=== PATIENT | female | born 1995 | race Two or more races ===

== ENCOUNTER 2016-04-28 16:20 | Emergency (ER) | payer MEDICAID ==
[~2016-04-28 16:20] MED LIST: ALLERGY MEDS PO; AUGMENTIN 875-11 TAB PO; CLONAZEPAM0.25 MG PO; DIFLUCAN100 M1 PO; FLAGYL500 M1 PO; GLUCOPHAGE1000 M1 PO; IBUPROFEN800 MG PO; LISINOPRIL20 MG PO; NORCO 5/325 TAB1 TAB PO; OMEPRAZOLE20 M4 PO; PERCOCET 5/3251 TAB PO; PRENATAL1 EACH PO; PROBIOTIC1 EAC8 PO; PROTONIX40 M2 PO; XANAX1 M1 PO; ZANTAC 7575 M1 PO; ZITHROMAX250 M1 PO; ZOFRAN4 M2 PO; ZOLOFT100 M1 PO
[2016-04-28] MEDS ORDERED: PROGESTERONE100 M1 PO (17:21)
[2016-04-28 18:36] LABS: ANION GAP 12 mmol/L (0-20); BLOOD UREA NITROGEN 10 mg/dl (6-24); CALCIUM 8.9 mg/dl (8.5-10.5); CARBON DIOXIDE-VENOUS 23 mmol/L (22-32); CHLORIDE 110 mmol/l (96-110); CREATININE 0.85 mg/dl (0.50-1.10); GLUCOSE 104 mg/dL (70-110); POTASSIUM 3.8 mmol/L (3.7-5.1); SODIUM 141 mmol/L (135-145); eGFR VALUE FOR BLACK >90 mL/Min
[2016-04-28 19:02] LABS: BASO % 0.2 % (0-2); EOS % 0.6 % (0-7); EOSINOPHIL ABSOLUTE COUNT 0.1 tho/cmm (0.0-0.7); HCT-HEMATOCRIT 35.6 % (34.0-49.0); HGB-HEMOGLOBIN 11.6 gm/dl (12.0-15.5); LYMPH ABSOLUTE COUNT 3.3 tho/cmm (0.8-4.5); MCH (MEAN CORPUSCULAR HGB) 28.6 pg (28.0-32.0); MCHC MEAN CORPUSCULAR HGB CONC 32.6 % (32.0-36.0); MCV (MEAN CELL VOLUME) 87.7 fl (82.0-96.0); MEAN PLATELET VOLUME 10.6 cmc (9.4-12.4); MONO % 6.7 % (0-12); MONOCYTE ABSOLUTE COUNT 0.9 tho/cmm (0.0-1.2); NEUTROPHIL ABSOLUTE COUNT 8.4 tho/cmm (1.6-8.0); NEUTROPHIL-AUTOMATED 8.4 tho/cmm (1.6-8.0); NEUTROPHILS % 66.5 % (40-80); PLATELET COUNT 328 tho/cmm (150-450); RED BLOOD COUNT 4.06 mil/cmm (4.00-5.20); RED CELL DISTRIBUTION WIDTH 14.1 % (12.4-16.4); WHITE BLOOD COUNT 12.7 tho/cmm (4.0-10.0)
[2016-04-28 19:20] LABS: URINE APPEARANCE CLEAR; URINE BILIRUBIN NEGATIVE (NEG); URINE BLOOD NEGATIVE (NEG); URINE COLOR YELLOW; URINE GLUCOSE (UA) NEGATIVE (NEG); URINE KETONE NEGATIVE (NEG); URINE LEUKOCYTE ESTERASE NEGATIVE (NEG); URINE NITRITE NEGATIVE (NEG); URINE PROTEIN SMALL (NEG); URINE SPECIFIC GRAVITY 1.015 (1.003-1.030)
[2016-04-28 19:39] LABS: URINE EPITHELIAL CELLS 15-30 /[HPF] (0-10); URINE MUCUS 1+
== END 2016-04-28 19:55 ==
LOC: EDMED 16:20
PROVIDERS: Physician Assistant
DX: O99.89 Other specified diseases and conditions complicating pregnancy, childbirth and the puerperium (principal); R10.2 Pelvic and perineal pain; Z90.49 Acquired absence of other specified parts of digestive tract

== ENCOUNTER 2016-05-03 17:41 | Emergency (ER) | payer MEDICAID ==
[~2016-05-03 17:41] MED LIST changes: +PROGESTERONE100 M1 PO
== END 2016-05-03 18:50 | disposition left against medical advice (07) ==
LOC: EDMED 17:41
DX: O26.891 Other specified pregnancy related conditions, first trimester (principal); R10.30 Lower abdominal pain, unspecified; Z3A.01 Less than 8 weeks gestation of pregnancy; Z53.21 Procedure and treatment not carried out due to patient leaving prior to being seen by health care provider

== ENCOUNTER 2016-06-03 20:18 | Emergency (ER) | payer MEDICAID | END 2016-06-03 21:00 | disposition left against medical advice (07) | LOC: EDMED 20:18 | DX: O20.9 Hemorrhage in early pregnancy, unspecified (principal); Z3A.09 9 weeks gestation of pregnancy; Z53.21 Procedure and treatment not carried out due to patient leaving prior to being seen by health care provider ==

== ENCOUNTER 2016-07-16 11:54 | Emergency (ER) | payer MEDICAID ==
[2016-07-16] MEDS ORDERED: PRENATAL 19 TA1 EACH PO (12:04)
[2016-07-16] MEDS ORDERED: ZOLOFT100 M1 PO (12:04)
[2016-07-16 16:05] LABS: URINE BILIRUBIN NEGATIVE (NEG); URINE BLOOD NEGATIVE (NEG); URINE GLUCOSE (UA) NEGATIVE (NEG); URINE KETONE NEGATIVE (NEG); URINE LEUKOCYTE ESTERASE POSITIVE (NEG); URINE NITRITE NEGATIVE (NEG); URINE PROTEIN NEGATIVE (NEG); URINE SPECIFIC GRAVITY 1.015 (1.003-1.030)
[2016-07-16 16:09] LABS: URINE APPEARANCE HAZY; URINE COLOR YELLOW
[2016-07-16 16:14] LABS: URINE AMORPHOUS 1+; URINE BACTERIA 1+; URINE RBC 0 /[HPF] (0-5)
[2016-07-16] MEDS ORDERED: CEPHALEXIN500 M1 PO (16:28)
== END 2016-07-16 17:00 ==
LOC: EDMED 11:54
PROVIDERS: Emergency Medicine
DX: O9A.212 Injury, poisoning and certain other consequences of external causes complicating pregnancy, second trimester (principal); S16.1XXA Strain of muscle, fascia and tendon at neck level, initial encounter; O26.892 Other specified pregnancy related conditions, second trimester; M54.5 Low back pain; O99.89 Other specified diseases and conditions complicating pregnancy, childbirth and the puerperium; R10.9 Unspecified abdominal pain; O16.2 Unspecified maternal hypertension, second trimester; Z3A.16 16 weeks gestation of pregnancy; Z90.49 Acquired absence of other specified parts of digestive tract; V49.40XA Driver injured in collision with unspecified motor vehicles in traffic accident, initial encounter; Y92.410 Unspecified street and highway as the place of occurrence of the external cause